=== PATIENT | female | born 1990 | race African-American/Black ===

== ENCOUNTER 2017-08-30 10:44 | Emergency (ER) | payer MEDICAID ==
[~2017-08-30] VITALS: Ht 182.9 cm; Wt 117.9 kg
[~2017-08-30 10:44] MED LIST: AMBIEN5 MG ORAL; COGENTIN2 MG PO; LITHIUM CARBON150 MG ORAL; ZOLPIDEM TARTRA10 MG ORAL; ZYPREXA5 MG ORAL
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
[2017-08-30 12:08] VITALS: BP 128/76
== END 2017-08-30 12:10 | disposition home or self-care (01) ==
LOC: EMR 11:17
DX: H11.32 Conjunctival hemorrhage, left eye (principal); J45.909 Unspecified asthma, uncomplicated; F31.9 Bipolar disorder, unspecified; Z88.8 Allergy status to other drugs, medicaments and biological substances
CPT/HCPCS: 99283

== ENCOUNTER 2019-08-10 20:10 | Emergency (ER) | payer MEDICAID ==
[~2019-08-10] VITALS: Ht 180.3 cm; Wt 77.1 kg
[2019-08-10 20:45] VITALS: BP 110/75
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
--- NOTE | 2019-08-10 21:00 | NUR ---
ED Nurse Note: ERMD at bedside.
--- NOTE | 2019-08-10 21:09 | Emergency Room Report ---
History of Present Illness General Chief Complaint: General Complaint Source: Patient Present Illness HPI Is a 28-year-old female with a psychiatric history. She presents with a complaint. She says she has oral sores. She just has some small cuts to the edge of her mouth. She also says she is hungry. She denies any fever chills but denies any suicidal thoughts homicidal thought. No nausea no vomiting. Denies any other complaint. Allergies: Coded Allergies: HALOPERIDOL (Verified Allergy, Unknown, 03/25/15) Pt. states "it makes me paralyzed and tense up" Patient History Past Medical History: see triage record, old chart reviewed, psych hx Past Surgical History: none Pertinent Family History: none Social History: Denies: smoking Now: No Immunizations: other Reviewed Nursing Documentation: PMH: Agreed; PSxH: Agreed Nursing Documentation-PMH Hx Asthma: Yes History Of Psychiatric Problem: Yes - bipolar Review of Systems Eye: Denies: eye pain, blurred vision ENT: Denies: ear pain, nose congestion, throat swelling Respiratory: Denies: cough, shortness of breath Cardiovascular: Denies: chest pain, palpitations Gastrointestinal: Denies: abdominal pain, diarrhea, nausea, vomiting Musculoskeletal: Denies: back pain, joint pain Skin: Denies: rash Neurological: Denies: headache, numbness Endocrine: Denies: increased thirst, increased urine Hematologic/Lymphatic: Denies: easy bruising All Other Systems: negative except mentioned in HPI Physical Exam Vital Signs Date Time Temp Pulse Resp B/P (MAP) Pulse Ox O2 Delivery O2 Flow Rate FiO2 08/10/19 20:41 98.2 111 18 104/66 (79) 96 Room Air Vitals with tachycardia Sp02 EP Interpretation: reviewed, normal General Appearance: well appearing, no apparent distress, alert Head: normocephalic, atraumatic Eyes: bilateral eye PERRL, bilateral eye EOMI ENT: hearing grossly normal, normal pharynx, other - Small ulceration at the edge of her lips. Neck: full range of motion, supple, no meningismus Respiratory: chest non-tender, lungs clear, normal breath sounds Cardiovascular #1: regular rate, rhythm, no murmur Gastrointestinal: normal bowel sounds, non tender, no mass, no organomegaly, no bruit, non-distended Musculoskeletal: back normal, normal range of motion, gait/station normal Psychiatric: mood/affect normal Medical Decision Making Diagnostic Impression: Primary Impression: Encounter for generalized patient complaints ER Course Patient with ulceration of her mouth and lips. No evidence of any bacterial infection. She looks well otherwise. I suspect most of her complaint is psychiatric in nature. She is not suicidal homicidal. She says she is want something to eat. No criteria for 5150. Will discharge home. Last Vital Signs Date Time Temp Pulse Resp B/P (MAP) Pulse Ox O2 Delivery O2 Flow Rate FiO2 08/10/19 20:41 98.2 111 18 104/66 (79) 96 Room Air Status: improved Disposition: HOME, SELF-CARE Condition: Stable Additional Instructions: Follow-up with mental health in 7 days but return if symptoms worsen. Rakan Will MD Aug 10, 2019 21:09
[2019-08-10 21:12] VITALS: BP 108/78
== END 2019-08-10 21:12 | disposition home or self-care (01) ==
LOC: EMR 21:02
DX: K13.79 Other lesions of oral mucosa (principal); F31.9 Bipolar disorder, unspecified; Z88.8 Allergy status to other drugs, medicaments and biological substances
CPT/HCPCS: 99281